=== PATIENT | female | born 1950 ===

== ENCOUNTER 2019-10-21 07:37 | Day surgery (SDC) | payer MEDICARE ==
[~2019-10-21] VITALS: Ht 160 cm; Wt 96.3 kg
[~2019-10-21 07:37] MED LIST: AMLO5 PO; Aspir 8181 MG PO; LISINOPRIL-HCT1 EACH PO; METF500 PO; MULTIVITAMINS1 EAC3 PO; TRAZ50 PO; VITAMIN D350 MC2 PO
== END 2019-10-21 09:38 | disposition home or self-care (01) ==
LOC: ORSCSDS 07:37
PROVIDERS: Internal Medicine Gastroenterology
PROC: 0DBL8ZX Excision of Transverse Colon, Via Natural or Artificial Opening Endoscopic, Diagnostic (ICD-10-PCS; principal; 2019-10-21 09:00)
DX: Z12.11 Encounter for screening for malignant neoplasm of colon (principal); Z86.010 Personal history of colon polyps; D12.3 Benign neoplasm of transverse colon; E11.9 Type 2 diabetes mellitus without complications; I10 Essential (primary) hypertension; K64.8 Other hemorrhoids; K57.30 Diverticulosis of large intestine without perforation or abscess without bleeding; E66.01 Morbid (severe) obesity due to excess calories; Z68.38 Body mass index [BMI] 38.0-38.9, adult; Z79.82 Long term (current) use of aspirin; Z79.84 Long term (current) use of oral hypoglycemic drugs; Z79.899 Other long term (current) drug therapy
CPT/HCPCS: 82947; 88305; J0461; J2405; J2704; J7120

== ENCOUNTER → 2022-08-27 | Outpatient (CLI) | payer MEDICARE, OTHER ==
[2022-08-27 19:24] LABS: Microalb/Creat Ratio UR, Rand 8.492 mg/g (0.000-30.000); Microalbumin, Random Urine 10.7 mg/L (0.000-20.000)
== END | disposition home or self-care (01) ==
LOC: LAB SHORT 15:49
PROVIDERS: Physician Assistant
DX: E11.9 Type 2 diabetes mellitus without complications (principal)
CPT/HCPCS: 82043; 82570

== ENCOUNTER 2024-06-07 06:11 | Day surgery (SDC) | payer MEDICARE, OTHER ==
[~2024-06-07] VITALS: Ht 160 cm; Wt 92.9 kg
[~2024-06-07 06:11] MED LIST changes: +Balanced Salt Epinephrine Irrigation Solution 500 mL IR SCH; +Lidocaine HCl/Pf 1% 5 ML VIAL XX SCH; +Moxifloxacin HCL 0.5 MG/0.1 ML 0.4MLSYR RIGHTEYE SCH; +PHENYLEPHRINE\\TROPICAMIDE\\TETRACAINE OPHTHALMIC DILATING SOLN RIGHTEYE PRN; +Povidone-Iodine 450 DROP/30 ML Solution ONE; +Povidone-Iodine 450 DROP/30 ML Solution RIGHTEYE SCH; +Tetracaine HCl/Pf 0.5% Opth Soln 4 ml ONE
[2024-06-07] MEDS ORDERED: Diazepam 2 MG Tab ONE (06:42)
[2024-06-07] MEDS ORDERED: Lidocaine HCl/Pf 1% 5 ML VIAL ONE (06:43)
[2024-06-07] MEDS ORDERED: Diazepam 5 MG Tab ONE (06:43)
[2024-06-07] MEDS ORDERED: ATOR10 PO (06:54)
[2024-06-07] MEDS ORDERED: MOUNJARO2.5 MG/0.5 SQ (06:55)
--- NOTE | 2024-06-07 07:08 | NUR ---
06/07/24 0708 RADHA MARIEE RESTING ON GURNEY SUPINE, HOB FLAT, RAILS UP, CALL LIGHT IN REACH.
[2024-06-07] MEDS ORDERED: Ondansetron HCl 2 MG / ML 2ML Vial ONE (07:10)
[2024-06-07 08:23] VITALS: BP 137/68
== END 2024-06-07 08:38 | disposition home or self-care (01) ==
LOC: ORSCSDS 06:11
PROVIDERS: Student in an Organized Health Care Education/Training Program
PROC: 08RJ3JZ Replacement of Right Lens with Synthetic Substitute, Percutaneous Approach (ICD-10-PCS; principal; 2024-06-07 08:00)
DX: E11.36 Type 2 diabetes mellitus with diabetic cataract (principal); H25.813 Combined forms of age-related cataract, bilateral; I10 Essential (primary) hypertension; Z79.84 Long term (current) use of oral hypoglycemic drugs; Z79.899 Other long term (current) drug therapy
CPT/HCPCS: 82947; A9270; J2003; J2405; V2632

== ENCOUNTER 2024-06-21 06:20 | Day surgery (SDC) | payer MEDICARE, OTHER ==
[~2024-06-21] VITALS: Ht 160 cm; Wt 93.9 kg
[~2024-06-21 06:20] MED LIST changes: +ATOR10 PO; +Diazepam 2 MG Tab PO PRN; +MOUNJARO2.5 MG/0.5 SQ; +Moxifloxacin HCL 0.5 MG/0.1 ML 0.4MLSYR LEFTEYE SCH; -Moxifloxacin HCL 0.5 MG/0.1 ML 0.4MLSYR RIGHTEYE SCH; +Ondansetron 4 MG SoluTab MM PRN; +PHENYLEPHRINE\\TROPICAMIDE\\TETRACAINE OPHTHALMIC DILATING SOLN LEFTEYE PRN; -PHENYLEPHRINE\\TROPICAMIDE\\TETRACAINE OPHTHALMIC DILATING SOLN RIGHTEYE PRN; +Povidone-Iodine 450 DROP/30 ML Solution LEFTEYE SCH; -Povidone-Iodine 450 DROP/30 ML Solution RIGHTEYE SCH; +diazePAM 5 MG,diazePAM 2 MG PO SCH
[2024-06-21] MEDS ORDERED: Lidocaine HCl/Pf 1% 5 ML VIAL ONE (06:35)
[2024-06-21] MEDS ORDERED: Diazepam 10 MG Tab ONE (06:46)
--- NOTE | 2024-06-21 07:01 | NUR ---
06/21/24 0701 Ekaterina Pemberton PT RATES ANXIETY 06/13.
[2024-06-21 08:21] VITALS: BP 141/74
--- NOTE | 2024-06-21 08:36 | NUR ---
06/21/24 0836 Kiana Kemp D/Benjamin INSTRUCTIONS GIVEN TO PT, UNDERSTANDING VERBALIZED. PT HAS ALL BELONGINGS. PT SITTING UP IN RECLINER DRINKING SODA, TOLERATING WELL. PT DENIES PAIN/NAUSEA. VSS, ON RA. PT AWAITING DAUGHTER TO ARRIVE TO PICK PT UP. NO VISIBLE SIGNS OF DISTRESS NOTED.
== END 2024-06-21 08:37 | disposition home or self-care (01) ==
LOC: ORSCSDS 06:20
PROVIDERS: Student in an Organized Health Care Education/Training Program
PROC: 08RK3JZ Replacement of Left Lens with Synthetic Substitute, Percutaneous Approach (ICD-10-PCS; principal; 2024-06-21 08:00)
DX: E11.36 Type 2 diabetes mellitus with diabetic cataract (principal); H25.812 Combined forms of age-related cataract, left eye; Z96.1 Presence of intraocular lens; I10 Essential (primary) hypertension; Z79.84 Long term (current) use of oral hypoglycemic drugs; Z79.899 Other long term (current) drug therapy
CPT/HCPCS: 82947; A9270; J2003; V2632

== ENCOUNTER 2025-03-27 09:09 | Day surgery (SDC) | payer MEDICARE ==
[~2025-03-27] VITALS: Ht 162.6 cm; Wt 86.2 kg
[2025-03-27] VITALS (19 sets, daily range): BP systolic 115–160; BP diastolic 72–99
[~2025-03-27 09:09] MED LIST changes: -Balanced Salt Epinephrine Irrigation Solution 500 mL IR SCH; -Diazepam 2 MG Tab PO PRN; +LISI20 PO; -Lidocaine HCl/Pf 1% 5 ML VIAL XX SCH; +MOUNJARO7.5 MG/0.5 SC; -Moxifloxacin HCL 0.5 MG/0.1 ML 0.4MLSYR LEFTEYE SCH; -Ondansetron 4 MG SoluTab MM PRN; -PHENYLEPHRINE\\TROPICAMIDE\\TETRACAINE OPHTHALMIC DILATING SOLN LEFTEYE PRN; -Povidone-Iodine 450 DROP/30 ML Solution LEFTEYE SCH; -Povidone-Iodine 450 DROP/30 ML Solution ONE; -Tetracaine HCl/Pf 0.5% Opth Soln 4 ml ONE; -diazePAM 5 MG,diazePAM 2 MG PO SCH
--- NOTE | 2025-03-27 09:49 | NUR ---
Pre-Op teaching done. Pt verbalizes understanding. Ambulatory in Day Surgery. Patient confirms NPO status and agrees with scheduled surgery. History, Chart, Medications and Allergies reviewed before start of procedure. Patient States Post-Procedure ride home has been arranged.
--- NOTE | 2025-03-27 12:19 | NUR ---
03/27/25 1219 Anastasiia Albarran SCOPE PINK:[phone]*
--- NOTE | 2025-03-27 13:26 | NUR ---
REVIEWED DISCHARGED INSTRUCTIONS WITH PATIENT. PATIENT VERBALIZES UNDERSTANDING. DISCHARGED TO HOME-OUT VIA WHEELCHAIR WITH BELONGINGS AND DISCHARGE INSTRUCTIONS ON HAND.
== END 2025-03-27 13:26 | disposition home or self-care (01) ==
LOC: ORSCMMR 09:09 → ORD 10:30 → ORSCMMR 10:30 → ORD 12:30 → ORSCMMR 13:26
PROVIDERS: Family Medicine
PROC: 0DJD8ZZ Inspection of Lower Intestinal Tract, Via Natural or Artificial Opening Endoscopic (ICD-10-PCS; principal; 2025-03-27 10:30)
DX: Z12.11 Encounter for screening for malignant neoplasm of colon (principal); K57.30 Diverticulosis of large intestine without perforation or abscess without bleeding; Z86.0101 Personal history of adenomatous and serrated colon polyps; I12.9 Hypertensive chronic kidney disease with stage 1 through stage 4 chronic kidney disease, or unspecified chronic kidney disease; E11.22 Type 2 diabetes mellitus with diabetic chronic kidney disease; N18.30 Chronic kidney disease, stage 3 unspecified; E78.2 Mixed hyperlipidemia; Z79.84 Long term (current) use of oral hypoglycemic drugs; Z79.85 Long-term (current) use of injectable non-insulin antidiabetic drugs; Z79.899 Other long term (current) drug therapy
CPT/HCPCS: 82947; J2704; J7120